=== PATIENT | female | born 1980 | race African-American/Black ===

== ENCOUNTER 2016-11-13 15:50 | Emergency (ER) | payer OTHER ==
--- NOTE | ~2016-11-13 | US106 ---
[facility] A Service of [facility] & [facility] RADIOLOGY TEXT RESULTS PATIENT: KARISHMA WILSON LOCATION: [facility]FT[facility] : 82 UNIT #: [id number] AGE: [address]: Lady Lauren SEX: F ORDER DR: [id number] [facility] [address] [place], [place] [address] [id number] E MR#: [id number] Acc #: [id number] NAME: KARISHMA WILSON : 1980 SEX: F STUDY DATE/TIME: 11/13/2016 15:24 UNIT: [facility] ROOM: STUDY DESCRIPTION: US Preg Uterus Transvaginal Attending Physician: Lady Lauren P.A.-C. Ordering Physician: Lady Lauren P.A.-C. Primary Care Physician: No Primary Care Physician MEDICAL IMAGING REPORT This report is preliminary unless electronic signature is present EXAM Pelvic ultrasound, 11/13. INDICATION Low back pain for 2 days. Patient is . Prior history of ectopic . FINDINGS Transvaginal imaging is performed of the pelvis in multiple planes. No comparison. Uterus measures about 7.7 x 5.4 x 6.5 cm. The endometrium is within normal limits at about 13 mm in thickness. There is a cystic lesion in the endometrium. This does not have the typical appearance of a gestational sac and there is no convincing double decidual reaction. Additionally, the patient's beta value is only 192 flor-international units/mL. Perfusion is noted in both ovaries. On the right ovary, there is a complex cystic lesion with internal debris measuring about 1.9 cm. This is probably a hemorrhagic cyst or potentially an endometrioma. This does not have the typical appearance of an ectopic . The left ovary is normal. There is some trace free fluid in the cul-de-sac which is nonspecific. IMPRESSION 1. There is a small cystic lesion in the endometrium. This does not have characteristics of a gestational sac at this time. There is no double decidual reaction and there are no internal contents. This may simply reflect a cyst rather than true gestational sac. Dedicated obstetrical followup is recommended, especially as the patient has a beta hCG value of 192. 2. Normal left ovary. 3. Complex cystic lesion on the right ovary measuring about 1.9 cm. It has internal echogenic debris. This is probably either a hemorrhagic cyst or potentially an endometrioma. Ectopic is considered unlikely based on this appearance. Again, attention on followup STS. [facility] A Service of [facility] & [facility] RADIOLOGY TEXT RESULTS PATIENT: KARISHMA WILSON LOCATION: [place] : 82 UNIT #: [id number] AGE: [address]: Lady Lauren SEX: F ORDER DR: recommended. 4. Free fluid in the cul-de-sac is nonspecific. Dictated by... Grzegorz Schafer Jr., M.D. THIS IS AN ELECTRONICALLY VERIFIED REPORT Grzegorz Schafer Jr., M.D. at 11/13/2016 4:47 PM SHRUTI/bhaskar TD: 11/13/2016 16:27 JOB #: [id number] MEDICAL IMAGING REPORT Page 1 of 1 COPY
[2016-11-13 13:58] LABS: URINE SOURCE CLEAN CATCH
[2016-11-13 14:10] LABS: URINE APPEARANCE CLEAR; URINE BILIRUBIN NEG (NEG); URINE BLOOD NEG (NEG); URINE COLOR YELLOW; URINE GLUCOSE NEG (NEG); URINE KETONE TRACE (NEG); URINE LEUKOCYTE ESTERASE NEG (NEG); URINE NITRATE NEG (NEG); URINE PROTEIN NEG (NEG)
[2016-11-13 14:28] LABS: CULTURE INDICATED? NO
== END 2016-11-13 16:22 | disposition home or self-care (01) ==
LOC: CFTX 15:50
PROVIDERS: Physician Assistant
DX: O20.0 Threatened abortion (principal); O99.89 Other specified diseases and conditions complicating pregnancy, childbirth and the puerperium; S39.012A Strain of muscle, fascia and tendon of lower back, initial encounter; F17.200 Nicotine dependence, unspecified, uncomplicated
CPT/HCPCS: 36415; 76817; 81003; 84702; 84703; 99284

== ENCOUNTER 2017-03-07 11:18 | Emergency (ER) | payer OTHER ==
[~2017-03-07] VITALS: Ht 167.6 cm; Wt 78.0 kg
== END 2017-03-07 13:08 | disposition home or self-care (01) ==
LOC: CFTX 11:18 → CED 11:18 → CFTX 12:09
DX: L02.31 Cutaneous abscess of buttock (principal); F17.200 Nicotine dependence, unspecified, uncomplicated
CPT/HCPCS: 10060; 87070; 87205; 99283

== ENCOUNTER 2017-03-26 15:55 | Emergency (ER) | payer OTHER ==
[~2017-03-26] VITALS: Ht 167.6 cm; Wt 81.2 kg
== END 2017-03-26 16:37 | disposition home or self-care (01) ==
LOC: CED 15:55 → CFTX 15:55
DX: L02.31 Cutaneous abscess of buttock (principal); F17.210 Nicotine dependence, cigarettes, uncomplicated; Z98.51 Tubal ligation status
CPT/HCPCS: 99282